=== PATIENT | female | born 1940 | race Two or more races ===

== ENCOUNTER 2020-05-01 09:38 | Outpatient (CLI) | payer OTHER | END 2020-05-01 09:52 | disposition HB | LOC: MAMO-SONO 09:38 | DX: C50.811 Malignant neoplasm of overlapping sites of right female breast (principal); N60.11 Diffuse cystic mastopathy of right breast; N60.12 Diffuse cystic mastopathy of left breast; R92.0 Mammographic microcalcification found on diagnostic imaging of breast ==

== ENCOUNTER 2020-06-30 07:36 | Day surgery (SDC) | payer OTHER ==
[~2020-06-30 07:36] MED LIST: COZAAR100 MG PO
== END 2020-06-30 20:30 | disposition home or self-care (01) ==
LOC: CIR.AMB 07:36
PROVIDERS: ATTEND Surgery
DX: D05.01 Lobular carcinoma in situ of right breast (principal); Z20.822 Contact with and (suspected) exposure to COVID-19